=== PATIENT | male | born 2005 ===

== ENCOUNTER 2025-02-23 01:48 | Emergency (ER) | payer BC, SELFPAY ==
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
[2025-02-23 02:08] VITALS: BP 119/78; PULSE 115; RESP 18; TEMP 36.7; O2SAT 99; BMI 27.0
[2025-02-23 02:10] VITALS: BP 126/71; PULSE 108; RESP 20; TEMP 36.9; O2SAT 97; BMI 27.7
[2025-02-23 02:16] VITALS: BP 126/71; PULSE 108; RESP 20; TEMP 36.9; O2SAT 97
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
[2025-02-23 03:19] VITALS: BP 118/70; PULSE 94; RESP 15; O2SAT 97
--- OUTSIDE RECORDS SUMMARY | 2025-02-23 03:50 | XMS_ITS ---
Author Name [facility] Organization Unknown History of Medication Use Medication Directions Dispensed Refills Start Date End Date Stat diclofenac potassium (CATAFLAM) 50 MG tablet TAKE 1 TABLET (50 MG) BY MOUTH 3 (THREE) TIMES DAILY 08/04/2020 12/01/2021 active Allergies Allergen Reaction Severity Comment Documented Date Source Statu s OTHER (ENVIRONMENTAL) Severe Cats, Rag weed, dust mites, mold, trees, grass, poison neela, poison oak,Other reaction(s): Postive Skin test/Positive RAST 06/19/2020 [facility] active AZITHROMYCIN Other reaction(s): GI intolerance,Sto mach pain and vomiting 05/01/2018 [facility] active Encounters Encounter Type Encounter Reason Primary Diagnosis Location Date Ambulatory [facility] 05/10/2022 Ambulatory [facility] 12/01/2021 Ambulatory [facility] 04/23/2021 Care Team Organization Name Specialty Phone Email Start Date End [facility] te [facility] LUIS ENRIQUE JAY Primary Care 05/12/2022
[2025-02-23 04:56] VITALS: BP 118/70; PULSE 94; RESP 15; TEMP 36.6; O2SAT 97
== END 2025-02-23 04:58 | disposition home or self-care (01) ==
PROVIDERS: Emergency Provider Emergency Medicine
DX: S06.0X0A Concussion without loss of consciousness, initial encounter (principal); S62.522A Displaced fracture of distal phalanx of left thumb, initial encounter for closed fracture; S60.142A Contusion of left ring finger with damage to nail, initial encounter; S40.022A Contusion of left upper arm, initial encounter; S40.021A Contusion of right upper arm, initial encounter; S20.229A Contusion of unspecified back wall of thorax, initial encounter; S00.431A Contusion of right ear, initial encounter; S00.83XA Contusion of other part of head, initial encounter; S00.03XA Contusion of scalp, initial encounter; Y04.2XXA Assault by strike against or bumped into by another person, initial encounter; Y93.89 Activity, other specified; Y92.89 Other specified places as the place of occurrence of the external cause; Y99.8 Other external cause status
CPT/HCPCS: 29130; 70450; 70486; 71045; 72127; 73120; 99284

== ENCOUNTER → 2025-02-23 02:55 | Outpatient (BNV) | payer SELFPAY | PROVIDERS: Emergency Provider Emergency Medicine; Visit Provider General Practice | DX: M54.2 Cervicalgia (principal); J32.1 Chronic frontal sinusitis; R51.9 Headache, unspecified; R07.9 Chest pain, unspecified; S62.631A Displaced fracture of distal phalanx of left index finger, initial encounter for closed fracture | CPT/HCPCS: 70450; 70486; 71045; 72127; 73120 ==